=== PATIENT | male | born 1985 | race Caucasian/White ===

== ENCOUNTER 2025-02-12 23:14 | Inpatient (IN) | payer OTHER ==
[~2025-02-12] VITALS: Ht 185.4 cm; Wt 249.5 kg
[2025-02-12 23:16] VITALS: BP 142/72
[2025-02-13 00:09] LABS: BASO # 0.0 10*3/uL (0.0-0.1); BASO % 0.3 % (0.0-1.0); EOS # 0.2 10*3/uL (0.0-0.4); EOS % 3.4 % (1.0-4.0); MEAN CELL VOLUME 82.6 fl (80.0-94.0); MEAN CORPUSCULAR HGB 25.4 pg (27.0-31.0); MEAN PLATELET VOLUME 11.9 fl (9.6-12.3); MONO # 0.5 10*3/uL (0.1-1.0); MONO % 7.6 % (3.0-9.0); NEUT # 4.6 10*3/uL (2.3-7.9); NEUT % 71.8 % (47.0-73.0); NUCLEATED RED BLOOD CELL 0.0 % (0.0-0.0); NUCLEATED RED BLOOD CELL 0.0 10*3/uL (0.0-0.0); PLATELET COUNT AUTOMATED 158 10*3/uL (130-400); RED CELL DISTRI WIDTH 15.0 % (0-14.5)
[2025-02-13] MEDS ORDERED: ACETAMINOPHEN 325 MG TAB PO ONE (00:20)
[2025-02-13 00:30] LABS: BUN 20 mg/dl (9-23)
[2025-02-13 02:04] LABS: BILIRUBIN Negative (Negative); BLOOD Negative (Negative); CLARITY Clear (Clear); COLOR Yellow (Yellow); KETONE Negative (Negative); LEUKO ESTERASE Negative (Negative); NITRITE Negative (Negative); PH 5.0 (4.5-8.0); SPECIFIC GRAVITY 1.015 (1.001-1.030); UROBILINOGEN 0.2 E.U./dl (0.0-1.0)
[2025-02-13] MEDS ORDERED: DEXTROSE 50% 25 GM/50 ML VIAL IV PRN (04:00)
[2025-02-13] MEDS ORDERED: ALBUTEROL SULFATE HF (04:16)
[2025-02-13] MEDS ORDERED: TORSEMIDE100 MG PO (04:16)
[2025-02-13] MEDS ORDERED: POTASSIUM CHLO20 ME4 PO (04:16)
[2025-02-13] MEDS ORDERED: JARDIANCE10 MG PO (04:16)
[2025-02-13] MEDS ORDERED: Albuterol 108mcg/A (04:17)
[2025-02-13] MEDS ORDERED: TRAZODONE HYDR300 MG PO (04:17)
[2025-02-13] MEDS ORDERED: MOUNJARO5 MG/0.51 SQ (04:17)
[2025-02-13] MEDS ORDERED: LEVOTHYROXINE75 MCG PO (04:18)
[2025-02-13] MEDS ORDERED: PREGABALIN150 MG PO (04:19)
[2025-02-13] MEDS ORDERED: ARIPIPRAZOLE5 MG PO (04:19)
[2025-02-13] MEDS ORDERED: IRON325 M1 PO (04:20)
[2025-02-13] MEDS ORDERED: HYDROCODONE-AC1 EAC2 PO (04:20)
[2025-02-13] MEDS ORDERED: ADMELOG100 UNIT/1 SQ (04:23)
[2025-02-13] MEDS ORDERED: PANTOPRAZOLE SO40 MG PO (04:23)
[2025-02-13] MEDS ORDERED: ELIQUIS5 M1 PO (04:24)
[2025-02-13] MEDS ORDERED: BUSPIRONE HCL7.5 MG PO (04:25)
[2025-02-13 04:58] VITALS: BP 142/89
[2025-02-13] MEDS ORDERED: Albuterol Sulf/Ipratropium 3 ML VIAL NEB PRN (07:05)
[2025-02-13] MEDS ORDERED: busPIRone Hydrochloride 7.5 MG TAB PO SCH (07:19)
[2025-02-13] MEDS ORDERED: INSULIN LISPRO 1 UNIT/0.01 ML SQ SCH (07:30)
[2025-02-13] MEDS ORDERED: IOHEXOL 350 MG/ML 100 ML VIAL IV ONE (07:35)
[2025-02-13] MEDS ORDERED: SODIUM CHLORIDE 0.9% 100 ML BAG IV ONE (07:35)
[2025-02-13 08:50] VITALS: BP 138/78
[2025-02-13] MEDS ORDERED: LANTUS100 UNIT/1 SC (09:07)
[2025-02-13] MEDS ORDERED: EMPAGLIFLOZIN 10 MG TABLET PO SCH (10:00)
[2025-02-13] MEDS ORDERED: APIXABAN 5 MG TAB PO SCH (10:00)
[2025-02-13] MEDS ORDERED: FERROUS SULFATE 325 MG TAB PO SCH (10:00)
[2025-02-13] MEDS ORDERED: POTASSIUM CHLORIDE 20 MEQ TAB PO SCH (10:00)
[2025-02-13] MEDS ORDERED: TORSEMIDE 20 MG TAB PO SCH (10:00)
[2025-02-13 12:00] VITALS: BP 120/65
[2025-02-13] MEDS ORDERED: Acetaminophen/Hydrocodone ES 7.5/325 tablet PO SCH (12:00)
[2025-02-13] MEDS ORDERED: PREGABALIN 75 MG CAP PO SCH (14:00)
[2025-02-13] MEDS ORDERED: ACETAMINOPHEN 325 MG TAB PO PRN (15:10)
[2025-02-13] MEDS ORDERED: Ondansetron Hydrochloride 4 MG/2 ML VIAL IV PRN (15:10)
[2025-02-13] MEDS ORDERED: ACETAMINOPHEN 650 MG SUPP R PRN (15:10)
[2025-02-13] MEDS ORDERED: BISACODYL 5 MG TAB PO PRN (15:10)
[2025-02-13 16:00] VITALS: BP 119/55
[2025-02-13 20:00] VITALS: BP 139/69
[2025-02-13] MEDS ORDERED: FOAM BANDAGE 5X5 T ONE (21:34)
[2025-02-13] MEDS ORDERED: ARIPiprazole 5 MG TAB PO SCH (22:00)
[2025-02-14] VITALS: BP 130/76
[2025-02-14 06:11] LABS: BUN 21 mg/dl (9-23)
[2025-02-14 06:15] LABS: BASO # 0.0 10*3/uL (0.0-0.1); BASO % 0.4 % (0.0-1.0); EOS # 0.3 10*3/uL (0.0-0.4); EOS % 5.4 % (1.0-4.0); MEAN CELL VOLUME 82.4 fl (80.0-94.0); MEAN CORPUSCULAR HGB 25.2 pg (27.0-31.0); MEAN PLATELET VOLUME 12.0 fl (9.6-12.3); MONO # 0.4 10*3/uL (0.1-1.0); MONO % 8.5 % (3.0-9.0); NEUT # 3.1 10*3/uL (2.3-7.9); NEUT % 64.5 % (47.0-73.0); NUCLEATED RED BLOOD CELL 0.0 % (0.0-0.0); NUCLEATED RED BLOOD CELL 0.0 10*3/uL (0.0-0.0); PLATELET COUNT AUTOMATED 140 10*3/uL (130-400); RED CELL DISTRI WIDTH 15.2 % (0-14.5)
[2025-02-14 08:00] VITALS: BP 115/55
[2025-02-14] MEDS ORDERED: BISACODYL 5 MG TAB PO SCH (10:00)
[2025-02-14] MEDS ORDERED: BISACODYL 10 MG SUPP R SCH (10:00)
[2025-02-14 12:00] VITALS: BP 138/66
[2025-02-14] MEDS ORDERED: COMPAZINE5 M3 PO (13:06)
[2025-02-14] MEDS ORDERED: FOAM BANDAGE 5X5 T ONE (14:34)
== END 2025-02-14 12:15 | disposition home or self-care (01) | DRG 48 ==
LOC: ED 23:14 → EDHOLD 02-13 03:32 → 4E 02-13 03:32
PROVIDERS: Emergency Medicine; ADMIT Internal Medicine; ATTEND Internal Medicine
PROC: 5A0935A Assistance with Respiratory Ventilation, Less than 24 Consecutive Hours, High Flow/Velocity Cannula (ICD-10-PCS; principal; 2025-02-14)
DX: G90.9 Disorder of the autonomic nervous system, unspecified (principal); G43.909 Migraine, unspecified, not intractable, without status migrainosus; E11.40 Type 2 diabetes mellitus with diabetic neuropathy, unspecified; Z68.45 Body mass index [BMI] 70 or greater, adult; I50.9 Heart failure, unspecified; E11.65 Type 2 diabetes mellitus with hyperglycemia; E78.5 Hyperlipidemia, unspecified; F32.A Depression, unspecified; F41.1 Generalized anxiety disorder; K21.9 Gastro-esophageal reflux disease without esophagitis; E03.9 Hypothyroidism, unspecified; J44.89 Other specified chronic obstructive pulmonary disease; H53.2 Diplopia; E66.01 Morbid (severe) obesity due to excess calories; G47.30 Sleep apnea, unspecified; Z88.0 Allergy status to penicillin; Z88.8 Allergy status to other drugs, medicaments and biological substances; Z91.09 Other allergy status, other than to drugs and biological substances; Z88.1 Allergy status to other antibiotic agents; Z79.4 Long term (current) use of insulin; Z83.3 Family history of diabetes mellitus; Z79.01 Long term (current) use of anticoagulants; Z79.2 Long term (current) use of antibiotics; Z86.73 Personal history of transient ischemic attack (TIA), and cerebral infarction without residual deficits; Z79.899 Other long term (current) drug therapy; Z90.49 Acquired absence of other specified parts of digestive tract